=== PATIENT | male | born 1980 | race African-American/Black ===

== ENCOUNTER 2016-07-11 17:26 | Emergency (ER) | payer OTHER ==
[~2016-07-11] VITALS: Ht 175.3 cm; Wt 73.5 kg
[2016-07-11 17:35] VITALS: BP 127/65
== END 2016-07-11 18:13 | disposition home or self-care (01) ==
LOC: ER 17:29
DX: A64 Unspecified sexually transmitted disease (principal)
CPT/HCPCS: 99281; A4606; Z7610; Z7502

== ENCOUNTER 2016-11-26 20:14 | Emergency (ER) | payer OTHER ==
[~2016-11-26] VITALS: Ht 175.3 cm; Wt 72.6 kg
--- NOTE | 2016-11-26 21:18 | NUR ---
BB SELF; AMBULATORY TO ER BED 6 PT STATES "PARTNER TESTED POSITIVE FOR STI" PT AOX3 RR EVEN AND UNLABORED. NO SOB NOTED. NAD NOTED. NO NVD AT THIS TIME. CLERICAL PROOFREADER JA AT BEDSIDE FOR EVAL.
[2016-11-26] MEDS ORDERED: PENICILLIN G BENZATHINE 2.4 MMU/4 ML ML IM ONE ×2 (21:30→21:58)
[2016-11-26] MEDS ORDERED: CEFTRIAXONE 500 MG VIAL IM ONE (21:30)
[2016-11-26] MEDS ORDERED: AZITHROMYCIN 250 MG TABLET PO ONE ×2 (21:30→22:30)
--- NOTE | 2016-11-26 21:38 | NUR ---
PT REFUSED BLOOD DRAW. RISK AND BENEFITS EXPLAINED X3. PT STRONGLY REFUSED. HAMLET PERES MADE AWARE
[2016-11-26] MEDS ORDERED: LIDOCAINE /MPF 1% VIAL 5 ML VIAL ONE (21:57)
[2016-11-26] MEDS ORDERED: CEFTRIAXONE 500 MG VIAL ONE (21:57)
[2016-11-26] MEDS ORDERED: AZITHROMYCIN 250 MG TABLET ONE ×2 (21:57→22:49)
--- NOTE | 2016-11-26 22:16 | NUR ---
URINE COLLECTED. CALLED LAB FOR CABLE WORKER HELPER
--- NOTE | 2016-11-26 22:24 | NUR ---
PT RESUFED IM ATB. RISK AND BENEFITS EXPLAINED X 3. PT STRONGLY REFUSED. Addendum: 11/26/16 at 2224 by DESIRE HAMLET BONE
[2016-11-26 22:37] LABS: APPEARANCE,URINE CLEAR (CLEAR); BILIRUBIN,URINE NEGATIVE (NEGATIVE); BLOOD, URINE NEGATIVE Ery/uL (NEGATIVE); COLOR,URINE YELLOW (YELLOW); KETONES,URINE NEGATIVE (NEGATIVE); LEUKOCYTE ESTERASE ,URINE NEGATIVE (NEGATIVE); NITRITE, URINE NEGATIVE (NEGATIVE); PROTEIN,URINE NEGATIVE (NEGATIVE); UGLUCOSE NEGATIVE (NEGATIVE); UROBILINOGEN,URINE 0.2 EU/dL (0.2)
--- NOTE | 2016-11-26 23:06 | NUR ---
Patient discharged to home in stable condition. Written and verbal after care instructions given. Patient verbalizes understanding of instruction. ambulatory with a steady gait
[2016-11-26 23:07] VITALS: BP 124/68
== END 2016-11-26 23:07 | disposition home or self-care (01) ==
LOC: ER 20:27
DX: R30.0 Dysuria (principal); Z20.2 Contact with and (suspected) exposure to infections with a predominantly sexual mode of transmission
CPT/HCPCS: 81001; 87491; 87591; 99284; A4606; Z7610; 81000-TC; J0558; J0696; J3490

== ENCOUNTER 2017-01-28 16:56 | Emergency (ER) | payer OTHER ==
[~2017-01-28] VITALS: Ht 172.7 cm; Wt 74.8 kg
--- NOTE | 2017-01-28 17:25 | NUR ---
PATIENT TO ED DT PAIN/DISCHARGE FROM [facility] X 8 MONTHS. PATIENT IS AFEBRILE. VSS
[2017-01-28] MEDS ORDERED: LIDOCAINE /MPF 1% VIAL 5 ML VIAL ONE (17:50)
[2017-01-28] MEDS ORDERED: CEFTRIAXONE 500 MG VIAL ONE (17:50)
[2017-01-28] MEDS ORDERED: LIDOCAINE HCL/PF 1% 30 ML VIAL IM ONE (18:00)
[2017-01-28] MEDS ORDERED: CEFTRIAXONE 500 MG VIAL IM ONE (18:00)
[2017-01-28 18:56] VITALS: BP 129/68
--- NOTE | 2017-01-28 18:57 | NUR ---
Patient discharged to home in stable condition. Written and verbal after care instructions given. Patient verbalizes understanding of instruction.
== END 2017-01-28 18:57 | disposition home or self-care (01) ==
LOC: ER 16:59
DX: A64 Unspecified sexually transmitted disease (principal); F17.200 Nicotine dependence, unspecified, uncomplicated
CPT/HCPCS: 96372; 99283; A4606; J0696; J3490 ×2; Z7610

== ENCOUNTER 2017-06-03 18:12 | Emergency (ER) | payer SELFPAY ==
[~2017-06-03] VITALS: Ht 172.7 cm; Wt 76.2 kg
[2017-06-03 18:14] VITALS: BP 141/84
[2017-06-03] MEDS ORDERED: CEFTRIAXONE 500 MG VIAL ONE (18:48)
[2017-06-03] MEDS ORDERED: AZITHROMYCIN 250 MG TABLET ONE (18:48)
[2017-06-03] MEDS ORDERED: LIDOCAINE HCL/MPF 1% 30 ML VIAL IJ ONE (18:49)
[2017-06-03 18:50] LABS: BILIRUBIN,URINE NEGATIVE (NEGATIVE); BLOOD, URINE NEGATIVE Ery/uL (NEGATIVE); COLOR,URINE YELLOW (YELLOW); KETONES,URINE NEGATIVE (NEGATIVE); LEUKOCYTE ESTERASE ,URINE NEGATIVE (NEGATIVE); NITRITE, URINE NEGATIVE (NEGATIVE); PROTEIN,URINE NEGATIVE (NEGATIVE); UGLUCOSE NEGATIVE (NEGATIVE); UROBILINOGEN,URINE 0.2 EU/dL (0.2)
[2017-06-03 18:52] LABS: APPEARANCE,URINE CLEAR (CLEAR)
[2017-06-03] MEDS: CEFTRIAXONE 500 MG VIAL IM ONE (19:07)
[2017-06-03] MEDS: AZITHROMYCIN 250 MG TABLET PO ONE (19:07)
== END 2017-06-03 19:38 | disposition home or self-care (01) ==
LOC: ER 18:15
DX: N34.2 Other urethritis (principal); F17.200 Nicotine dependence, unspecified, uncomplicated; Z87.438 Personal history of other diseases of male genital organs
CPT/HCPCS: 81000-TC; 87491; 87591; A4606; J0696; J3490; Z7610